=== PATIENT | male | born 1935 | race Caucasian/White ===

== ENCOUNTER 2021-05-18 11:21 | Emergency (ER) | payer OTHER ==
[2021-05-18] MEDS ORDERED: Lidocaine 1% with EPINEPHrine 1:100,000 10 ML MDV INJECT ONE (11:54)
[2021-05-18] MEDS ORDERED: cefTRIAXone 1 GM Vial IM ONE (13:47)
[2021-05-18] MEDS ORDERED: Lidocaine 1% 2 ML ONE (13:53)
[2021-05-18] MEDS ORDERED: cefTRIAXone 1,000 MG in Lidocaine 1% 1 ML IM ONE (14:07)
[2021-05-18 15:10] VITALS: BP 118/60; PULSE 88
== END 2021-05-18 15:00 | disposition home or self-care (01) ==
LOC: MW.ED 11:54
DX: L02.411 Cutaneous abscess of right axilla (principal)
CPT/HCPCS: 10060; 36415; 85025; 87070; 87077; 87186; 87205; 96372; 99283; J0696

== ENCOUNTER 2021-05-20 12:33 | Emergency (ER) | payer OTHER ==
[2021-05-20 12:47] VITALS: BP 131/85; PULSE 87
[2021-05-20] MEDS ORDERED: Lidocaine 1% 5 ML VIAL ONE (12:49)
[2021-05-20] MEDS ORDERED: Lidocaine 1% 5 ML VIAL INJECT ONE (12:50)
== END 2021-05-20 13:08 | disposition home or self-care (01) ==
LOC: MW.ED 12:33
DX: L02.411 Cutaneous abscess of right axilla (principal); Z48.00 Encounter for change or removal of nonsurgical wound dressing; Z88.0 Allergy status to penicillin
CPT/HCPCS: 99282

== ENCOUNTER 2021-05-29 13:22 | Emergency (ER) | payer OTHER | END 2021-05-29 17:30 | disposition left against medical advice (07) | LOC: MW.ED 13:22 | DX: L02.413 Cutaneous abscess of right upper limb (principal); Z53.21 Procedure and treatment not carried out due to patient leaving prior to being seen by health care provider ==

== ENCOUNTER 2021-06-02 11:46 | Emergency (ER) | payer OTHER ==
[2021-06-02] MEDS ORDERED: Bupivacaine 0.25% 10 ML SDV INJECT ONE (13:02)
[2021-06-02] MEDS ORDERED: Lidocaine 1% 5 ML VIAL INJECT ONE (13:02)
[2021-06-02] MEDS ORDERED: Sodium Chloride 0.9% 2.5 ML Syringe FLUSH PRN (13:35)
[2021-06-02] MEDS ORDERED: Sodium Chloride 0.9% 10 ML Syringe FLUSH PRN (13:35)
[2021-06-02] MEDS ORDERED: Morphine 2 MG/ML SYRINGE IVPUSH ONE (13:58)
[2021-06-02] MEDS ORDERED: Ondansetron 4 MG/2 ML SDV IVPUSH ONE (13:58)
[2021-06-02 14:29] LABS: BLOOD UREA NITROGEN,BUN 13 mg/dL (7.0-18.0); CARBON DIOXIDE,CO2 25.6 mmol/L (21.0-32.0); CHLORIDE,CL 98 mmol/L (98-107); GLUCOSE RANDOM 107 mg/dL (74-106); SODIUM,NA 133 mmol/L (136-148)
[2021-06-02] MEDS ORDERED: Iopamidol 755 Mg/ML 100 ML Bottle IVPUSH ONE (16:30)
[2021-06-02] MEDS ORDERED: Apixaban 5 MG Tab PO ONE (18:00)
[2021-06-02 18:39] VITALS: BP 131/80; PULSE 83
== END 2021-06-02 18:40 | disposition left against medical advice (07) ==
LOC: MW.ED 11:46
DX: L02.411 Cutaneous abscess of right axilla (principal); Z88.0 Allergy status to penicillin
CPT/HCPCS: 36415; 71260; 80053; 85025; 96374; 96375; 99284; A9270; J2270; J2405; J3490; Q9967

== ENCOUNTER 2021-06-13 10:03 | Emergency (ER) | payer OTHER ==
[2021-06-13] MEDS ORDERED: Sodium Chloride 0.9% 2.5 ML Syringe FLUSH PRN (10:25)
[2021-06-13] MEDS ORDERED: Sodium Chloride 0.9% 10 ML Syringe FLUSH PRN (10:25)
[2021-06-13 12:23] VITALS: BP 111/69; PULSE 98
[2021-06-13 14:23] LABS: BLOOD UREA NITROGEN,BUN 20 mg/dL (7.0-18.0); CARBON DIOXIDE,CO2 25.3 mmol/L (21.0-32.0); CHLORIDE,CL 97 mmol/L (98-107); GLUCOSE RANDOM 111 mg/dL (74-106); POTASSIUM,K 4.5 mmol/L (3.5-5.1); SODIUM,NA 132 mmol/L (136-148)
== END 2021-06-13 13:38 | disposition left against medical advice (07) ==
LOC: MW.ED 10:03
DX: L02.411 Cutaneous abscess of right axilla (principal); Z91.19 Patient's noncompliance with other medical treatment and regimen
CPT/HCPCS: 36415; 80053; 83605; 85025; 85610; 87040; 99283; 99284

== ENCOUNTER 2021-06-14 08:06 | Emergency (ER) | payer OTHER ==
[2021-06-14] MEDS ORDERED: Sodium Chloride 0.9% 1,000 ML IV ONE (08:58)
[2021-06-14 09:43] LABS: BLOOD UREA NITROGEN,BUN 21 mg/dL (7.0-18.0); CARBON DIOXIDE,CO2 24.4 mmol/L (21.0-32.0); CHLORIDE,CL 96 mmol/L (98-107); GLUCOSE RANDOM 101 mg/dL (74-106); POTASSIUM,K 3.9 mmol/L (3.5-5.1); SODIUM,NA 130 mmol/L (136-148)
[2021-06-14] MEDS ORDERED: Lidocaine 1% 5 ML VIAL INJECT ONE (09:58)
[2021-06-14] MEDS ORDERED: Sulfamethoxazole/Trimethoprim 800-160 MG Tab PO STA (10:24)
[2021-06-14 11:35] VITALS: BP 105/65; PULSE 69
== END 2021-06-14 11:45 | disposition home or self-care (01) ==
LOC: MW.ED 08:06
DX: I26.99 Other pulmonary embolism without acute cor pulmonale (principal); L02.411 Cutaneous abscess of right axilla; J93.9 Pneumothorax, unspecified; Z88.0 Allergy status to penicillin; Z79.01 Long term (current) use of anticoagulants
CPT/HCPCS: 10060; 36415; 71045; 80048; 85025; 85610; 85730; 99283; A9270; J7030; 99284

== ENCOUNTER 2021-08-04 17:44 | Inpatient (IN) | payer OTHER ==
[2021-08-04] MEDS ORDERED: Acetaminophen/HYDROcodone 325-5 MG Tab PO ONE (18:36)
[2021-08-04] MEDS ORDERED: Lactated Ringers 1,000 ML IV STA ×2 (19:09→19:32)
[2021-08-04] MEDS ORDERED: Cefepime 1 GM in Premix Bag 1 BAG IV ONE (19:32)
[2021-08-04 20:07] LABS: CARBON DIOXIDE,CO2 26.6 mmol/L (21.0-32.0); ESTIMATED GFR 57.5 ml/min; POTASSIUM,K 3.8 mmol/L (3.5-5.1)
[2021-08-04] MEDS ORDERED: Iopamidol 755 MG/ML 500 ML Multipack Bottle IVPUSH ONE (20:51)
[2021-08-05 01:20] LABS: CORONAVIRUS COVID-19 NAA NEGATIVE (NEGATIVE); INFLUENZA A NAA NEGATIVE (NEGATIVE); INFLUENZA B NAA NEGATIVE (NEGATIVE)
[2021-08-05] MEDS ORDERED: Acetaminophen 325 MG Tab PO PRN (02:08)
[2021-08-05] MEDS ORDERED: Albuterol/Ipratropium 3.0-0.5 MG/3 ML Neb Soln NEB PRN (02:08)
[2021-08-05] MEDS ORDERED: Morphine 2 MG/ML SYRINGE IVPUSH PRN (02:08)
[2021-08-05] MEDS ORDERED: Ondansetron 4 MG/2 ML SDV IVPUSH PRN (02:08)
[2021-08-05] MEDS ORDERED: Lactated Ringers 1,000 ML IV SCH (02:15)
[2021-08-05] MEDS: Heparin Sodium 5,000 Units/ML Vial SUBCUT SCH ×2 (02:28→10:31)
[2021-08-05] MEDS: Cefepime 1 GM in Premix Bag 1 BAG IV SCH ×2 (04:16→11:09)
[2021-08-05 08:02] VITALS: BP 118/71; PULSE 80
[2021-08-05] MEDS ORDERED: Amoxicillin/Clavulanate K 875-125 MG Tab PO ONE (11:51)
== END 2021-08-05 13:45 | disposition left against medical advice (07) | DRG 603 ==
LOC: MW.ED 17:44 → MW.MS 23:48
PROVIDERS: ADMIT Student in an Organized Health Care Education/Training Program; ATTEND Student in an Organized Health Care Education/Training Program
DX: L03.111 Cellulitis of right axilla (principal); E87.2 Acidosis; C44.92 Squamous cell carcinoma of skin, unspecified; Z88.0 Allergy status to penicillin; F03.90 Unspecified dementia, unspecified severity, without behavioral disturbance, psychotic disturbance, mood disturbance, and anxiety; Z85.828 Personal history of other malignant neoplasm of skin; Z20.822 Contact with and (suspected) exposure to COVID-19
CPT/HCPCS: 0240U; 36415; 71260; 80053; 83605; 85025; 85610; 87040; 96365; 96367; 99291; A9270-GY; J0692; J3370; J7050; J7120; Q9967

== ENCOUNTER 2021-10-06 10:54 | Emergency (ER) | payer OTHER ==
[2021-10-06 13:12] VITALS: BP 104/59; PULSE 80
[2021-10-06] MEDS ORDERED: Acetaminophen/oxyCODONE 325-5 MG Tab PO ONE (13:52)
[2021-10-06 15:07] LABS: CARBON DIOXIDE,CO2 25.4 mmol/L (21.0-32.0)
== END 2021-10-06 16:53 | disposition home or self-care (01) ==
LOC: MW.ED 10:54
DX: L03.113 Cellulitis of right upper limb (principal); Z88.0 Allergy status to penicillin; Z79.899 Other long term (current) drug therapy; Z79.01 Long term (current) use of anticoagulants
CPT/HCPCS: 36415; 73060; 73090; 80053; 83605; 85025; 87040; 99283; A9270

== ENCOUNTER 2021-10-15 15:50 | Emergency (ER) | payer OTHER ==
[2021-10-15 17:26] VITALS: BP 109/53; PULSE 77
[2021-10-15] MEDS ORDERED: HYDROmorphone 1 MG/ML Syringe IM ONE (18:25)
[2021-10-15] MEDS ORDERED: fentaNYL 50 MCG/HR Transdermal Patch TRDERM SCH (18:45)
== END 2021-10-15 19:15 | disposition home or self-care (01) ==
LOC: MW.ED 15:50
DX: R45.4 Irritability and anger (principal); G89.4 Chronic pain syndrome; Z79.899 Other long term (current) drug therapy; Z79.01 Long term (current) use of anticoagulants
CPT/HCPCS: 99283; A9270

== ENCOUNTER 2021-10-17 06:47 | Emergency (ER) | payer OTHER ==
[2021-10-17] MEDS ORDERED: Ondansetron 4 MG Tab.DIS PO ONE (08:11)
[2021-10-17] MEDS ORDERED: HYDROmorphone 1 MG/ML Syringe IM ONE (08:11)
[2021-10-17 09:34] VITALS: BP 93/53; PULSE 79
== END 2021-10-17 10:40 | disposition home or self-care (01) ==
LOC: MW.ED 06:47
DX: G89.3 Neoplasm related pain (acute) (chronic) (principal); C44.529 Squamous cell carcinoma of skin of other part of trunk; Z79.01 Long term (current) use of anticoagulants
CPT/HCPCS: 96372; 99283; A9270; J1170; 99284